=== PATIENT | male | born 1945 | race Hispanic/Latino ===

== ENCOUNTER → 2020-03-04 | Outpatient (CLI) | payer OTHER | END | disposition home or self-care (01) | LOC: RAH 08:57 | PROVIDERS: ATTEND Internal Medicine | DX: M79.642 Pain in left hand (principal); M25.532 Pain in left wrist | CPT/HCPCS: 73110; 73130 ==

== ENCOUNTER 2021-05-24 16:16 | Observation (INO) | payer OTHER ==
[2021-05-24] VITALS (19 sets, daily range): BP systolic 114–162; BP diastolic 63–96
[~2021-05-24] VITALS: Ht 172.7 cm; Wt 95.3 kg
[2021-05-24] MEDS ORDERED: ONDANSETRON 4MG INJ ONE (16:46)
[2021-05-24] MEDS ORDERED: MORPHINE 4 MG SYG ONE (16:46)
[2021-05-24 16:58] LABS: BASOPHILS % (AUTO) 0.5 % (0.0-5.0); EOSINOPHILS % (AUTO) 3.4 % (0.0-8.0); HEMATOCRIT 46.5 % (42-54); LYMPHOCYTES % (AUTO) 28.1 % (21.0-51.0); MEAN CORPUSCULAR HEMOGLOBIN 28.2 pg (27.0-33.0); MEAN CORPUSCULAR HGB CONC 33.3 g/dL (32.0-36.0); MEAN CORPUSCULAR VOLUME 84.7 fL (79-99); MONOCYTES % (AUTO) 8.2 % (3.0-13.0); NEUTROPHILS % (AUTO) 59.5 % (40.0-77.0); PLATELET COUNT (AUTO) 154 K/uL (130-400); RED BLOOD CELL COUNT(AUTO) 5.49 MIL/uL (4.50-6.20); RED CELL DISTRIBUTION WIDTH 13.5 % (11.0-15.5); WHITE BLOOD COUNT (AUTO) 6.1 K/uL (4.8-10.8)
[2021-05-24] MEDS ORDERED: ONDANSETRON 4MG INJ IVP ONE (17:00)
[2021-05-24] MEDS ORDERED: CLINDAMYCIN IVPB 600MG/50ML 50 ML IV SCH (17:00)
[2021-05-24] MEDS ORDERED: MORPHINE 4 MG SYG IV ONE (17:00)
[2021-05-24] MEDS ORDERED: TETANUS/DIPHTHERIA TOXOID [ADULT] 0.5 ML VIAL IM ONE (17:00)
[2021-05-24 17:17] LABS: BILIRUBIN,TOTAL 0.3 mg/dL (0.2-1.0); CREATININE 1.4 mg/dL (0.5-1.5); POTASSIUM 3.3 mmol/L (3.5-5.1)
[2021-05-24] MEDS ORDERED: POTASSIUM BICARB/CIT AC 25 MEQ TABLET.EFF PO ONE (17:30)
[2021-05-24] MEDS ORDERED: LACTATED RINGERS 1000ML 1,000 ML IV ONE (18:42)
[2021-05-24] MEDS ORDERED: FENTANYL CITRATE PF 50 MCG/1 ML 5ML AMP IV ONE (18:47)
[2021-05-24] MEDS ORDERED: MIDAZOLAM HCL 1 MG/ML 2ML VIAL ONE ×2 (18:47→18:56)
[2021-05-24] MEDS: LACTATED RINGERS 1000ML 1,000 ML IV SCH (19:00)
[2021-05-24] MEDS ORDERED: MORPHINE 4 MG SYG IV PRN (19:00)
[2021-05-24] MEDS ORDERED: MORPHINE 2 MG SYG IV PRN (19:00)
[2021-05-24] MEDS ORDERED: LIDOCAINE HCL 1% 20 ML VIAL ONE (19:05)
[2021-05-24] MEDS ORDERED: PROPOFOL 10 MG/ML 20ML VIAL IV ONE (19:06)
[2021-05-24 19:20] LABS: PROTHROMBIN TIME 10.9 SEC (9.6-11.6)
[2021-05-24 19:21] LABS: PARTIAL THROMBOPLASTIN TIME 27.3 SEC (26.3-35.5)
[2021-05-24] MEDS ORDERED: DiphenhydrAMINE HCL 50 MG/ML VIAL IVP PRN (19:30)
[2021-05-24] MEDS ORDERED: OXYCODONE HCL 5 MG TAB PO PRN (19:30)
[2021-05-24] MEDS ORDERED: HYDROCODONE/ACETAMINOPHEN 5/325 MG TAB PO PRN (19:30)
[2021-05-24] MEDS ORDERED: TRAMADOL HCL 50 MG TABLET PO PRN (19:30)
[2021-05-24] MEDS: 0.9%NACL 1000ML 1,000 ML IV SCH (19:30)
[2021-05-24] MEDS ORDERED: KCL 20 MEQ ERTAB PO PRN (19:30)
[2021-05-24] MEDS ORDERED: FERROUS FUMARATE 324 MG TABLET PO PRN (19:30)
[2021-05-24] MEDS ORDERED: POTASSIUM CHLORIDE 20MEQ/100ML 100 ML IV PRN (19:30)
[2021-05-24] MEDS: ACETAMINOPHEN 500 MG TABLET PO SCH (19:30)
[2021-05-24] MEDS ORDERED: POTASSIUM CHLORIDE 10% ELIXIR 20 MEQ/15 ML UDCUP PO PRN (19:30)
[2021-05-24] MEDS ORDERED: CALCIUM CARB 500MG PO PRN (19:30)
[2021-05-24] MEDS ORDERED: DIPHENHYDRAMINE HCL 25 MG CAPSULE PO PRN (19:30)
[2021-05-24] MEDS ORDERED: FAMOTIDINE 20MG VIAL IV SCH (21:00)
[2021-05-24] MEDS: FAMOTIDINE 20MG TAB PO SCH (22:09)
[2021-05-25 00:06] VITALS: BP 152/95
[2021-05-25 00:30] VITALS: BP 145/76
[2021-05-25] MEDS: CLINDAMYCIN IVPB 900MG/50ML 50 ML IV SCH ×2 (01:01→09:33)
[2021-05-25 03:40] VITALS: BP 159/89
[2021-05-25] MEDS: ACETAMINOPHEN 500 MG TABLET PO SCH ×2 (04:22→12:47)
[2021-05-25 04:40] LABS: BASOPHILS % (AUTO) 0.4 % (0.0-5.0); EOSINOPHILS % (AUTO) 0.7 % (0.0-8.0); HEMATOCRIT 42.7 % (42-54); LYMPHOCYTES % (AUTO) 21.2 % (21.0-51.0); MEAN CORPUSCULAR HEMOGLOBIN 28.2 pg (27.0-33.0); MEAN CORPUSCULAR HGB CONC 33.3 g/dL (32.0-36.0); MEAN CORPUSCULAR VOLUME 84.7 fL (79-99); MONOCYTES % (AUTO) 8.7 % (3.0-13.0); NEUTROPHILS % (AUTO) 68.7 % (40.0-77.0); PLATELET COUNT (AUTO) 142 K/uL (130-400); RED BLOOD CELL COUNT(AUTO) 5.04 MIL/uL (4.50-6.20); RED CELL DISTRIBUTION WIDTH 13.6 % (11.0-15.5); WHITE BLOOD COUNT (AUTO) 7.6 K/uL (4.8-10.8)
[2021-05-25 04:52] LABS: CREATININE 1.2 mg/dL (0.5-1.5); PHOSPHORUS 3.2 mg/dL (2.5-4.9); POTASSIUM 3.6 mmol/L (3.5-5.1)
[2021-05-25] MEDS: LACTATED RINGERS 1000ML 1,000 ML IV SCH ×3 (05:06→15:16)
[2021-05-25] MEDS: 0.9%NACL 1000ML 1,000 ML IV SCH ×2 (05:30→15:17)
[2021-05-25 07:28] VITALS: BP 152/85
[2021-05-25] MEDS ORDERED: POLYETHYLENE GLYCOL 3350 17 GM POWD.PACK PO SCH (09:00)
[2021-05-25] MEDS: FAMOTIDINE 20MG TAB PO SCH (09:33)
[2021-05-25 10:54] VITALS: BP 148/89
[2021-05-25] MEDS ORDERED: PSYLLIUM SEED 1 EACH PACKET PO SCH (12:00)
[2021-05-25 15:37] VITALS: BP 157/81
[2021-05-25] MEDS ORDERED: ACET1TAB25 PO (16:50)
[2021-05-25] MEDS ORDERED: SULF1TAB42 PO (16:50)
[2021-05-25] MEDS ORDERED: TRAM50TA4 PO (16:50)
[2021-05-26] MEDS ORDERED: BISACODYL 5 MG TABLET.DR PO PRN (19:30)
[2021-05-27] MEDS ORDERED: BISACODYL 10 MG SUPP.RECT RC PRN (19:30)
== END 2021-05-25 18:00 | disposition home or self-care (01) ==
LOC: EDH 16:16 → EDHIP 18:27 → 3AH 20:21
PROVIDERS: ADMIT Internal Medicine; ATTEND Internal Medicine
DX: S61.211A Laceration without foreign body of left index finger without damage to nail, initial encounter (principal); S61.213A Laceration without foreign body of left middle finger without damage to nail, initial encounter; S61.231A Puncture wound without foreign body of left index finger without damage to nail, initial encounter; S66.123A Laceration of flexor muscle, fascia and tendon of left middle finger at wrist and hand level, initial encounter; I10 Essential (primary) hypertension; E87.6 Hypokalemia; Z85.46 Personal history of malignant neoplasm of prostate; Z90.49 Acquired absence of other specified parts of digestive tract; Z79.899 Other long term (current) drug therapy; Z98.890 Other specified postprocedural states; Z23 Encounter for immunization; Z96.653 Presence of artificial knee joint, bilateral; W31.89XA Contact with other specified machinery, initial encounter; Y93.89 Activity, other specified; Y92.89 Other specified places as the place of occurrence of the external cause; Y99.8 Other external cause status
CPT/HCPCS: 12041; 26370; 36415 ×2; 71045; 73130; 80048; 80053; 82948 ×2; 83735; 84100; 84484; 85025 ×2; 85610; 85730; 90471; 90714; 93005; 96361; 96365; 96366; 96375; 99285; A4565; A4930 ×2; A6223; A6446; G0378 ×24; J2250 ×2; J2270; J2405; J2704; J3010; J3490 ×3; J7120

== ENCOUNTER → 2022-02-01 | Outpatient (CLI) | payer OTHER ==
[~2022-02-01] MED LIST: D3/R1CAP PO; LOSA1TAB42 PO; POTA10CA44 PO
== END | disposition home or self-care (01) ==
LOC: RAH 08:43
PROVIDERS: ATTEND Internal Medicine
DX: M19.031 Primary osteoarthritis, right wrist (principal); M25.531 Pain in right wrist
CPT/HCPCS: 73110

== ENCOUNTER 2022-11-12 15:52 | Emergency (ER) | payer OTHER ==
[~2022-11-12] VITALS: Ht 172.7 cm; Wt 89.4 kg
[~2022-11-12 15:52] MED LIST changes: -POTA10CA44 PO; +POTA10CA45 PO
[2022-11-12 15:53] VITALS: BP 188/97
[2022-11-12] MEDS ORDERED: KETOROLAC 30MG VIAL (30MG/ML) IM ONE (16:30)
[2022-11-12] MEDS ORDERED: CYCL10TA16 PO (17:09)
== END 2022-11-12 17:19 | disposition home or self-care (01) ==
LOC: EDH 15:52
DX: M43.6 Torticollis (principal); E78.00 Pure hypercholesterolemia, unspecified; I10 Essential (primary) hypertension; Z88.0 Allergy status to penicillin
CPT/HCPCS: 99283; 96372; J1885